=== PATIENT | male | born 1995 | race Caucasian/White ===

== ENCOUNTER 2020-10-30 14:35 | Emergency (ER) | payer SELFPAY ==
[~2020-10-30] VITALS: Ht 170.2 cm; Wt 68.0 kg
[2020-10-30 14:49] VITALS: BP 130/81
[2020-10-30] MEDS ORDERED: cefTRIAXone SOD 1,000 MG VL IM ONE (15:15)
[2020-10-30] MEDS ORDERED: DexAMETHasone SOD PHOS 10MG/1ML VIAL INJ IM ONE (15:15)
== END 2020-10-30 16:38 | disposition home or self-care (01) ==
LOC: ER 14:35
DX: J02.9 Acute pharyngitis, unspecified (principal); Z20.828 Contact with and (suspected) exposure to other viral communicable diseases
CPT/HCPCS: 36415; 71045; 87426; 96372; 99284; C9803; J0696; J1100; U0003